=== PATIENT | male | born 1945 | race Caucasian/White ===

== ENCOUNTER → 2016-09-06 | Outpatient (CLI) | payer MEDICARE ==
[~2016-09-06] MED LIST: AMIODARONE HCL400 MG PO; ASPIRIN EC81 M1 PO; ASPIRIN PO; BACTRIM DS TABL1 TAB PO; CARBIDOPA LEV PO; CARDIZEM CD180 M1 PO; CARTIA; CARTIA XT PO; CARTIA XT240 M1 PO; CERTAGEN PO; CORDARONE200 M1 PO; COUMADIN5 MG PO; FLOMAX0.4 M1; FLOMAX0.4 M1 PO; FLOMAX0.4 MG PO; LOPRESSOR PO; LORTAB 10-5001 EACH PO; LOSARTAN POTASS50 MG PO; LOVENOX120 MG/0.8 INJ; MEDROL PO; PACERONE100 MG PO; PRESERVISION1 EA PO; PROSCAR5 MG PO; TIMOPTIC2.5 ML OP; TIMOPTIC5 ML OP; TIMOPTIC5 ML OS; TOPROL XL PO; TOPROL XL50 MG PO; UNKNOWN EYE DROP OS; VITAMIN B-1000 MCG/1 IM
--- NOTE | ~2016-09-06 | CT4 ---
[facility] A Service of [facility] & [facility] RADIOLOGY TEXT RESULTS PATIENT: TYLOR BAEZ [facility] 41 UNIT #: [id number] AGE: [address]: Zain Frost MD SEX: M ORDER DR: [id number] [facility] [address] [place], [place] [address] [id number] O MR#: [id number] [facility] #: [id number] NAME: TYLOR BAEZ : 1945 SEX: M STUDY DATE/TIME: 09/06/2016 17:00 UNIT: [facility] ROOM: STUDY DESCRIPTION: CT Abd and Pelv Wo Cont Attending Physician: Zain Frost M.D. Referring Physician: Zain Frost M.D. Ordering Physician: Zain Frost M.D. Primary Care Physician: Zain Frost M.D. MEDICAL IMAGING REPORT This report is preliminary unless electronic signature is present EXAM CT abdomen and pelvis, 09/06/2016. INDICATION Right flank pain for 2 weeks. Renal calculi. TECHNIQUE CT of the abdomen and pelvis without contrast. Coronal and sagittal reconstructions were obtained. This CT exam was performed with one or more of the following radiation dose reduction techniques: automatic exposure control, adjustment of mA and/or kV according to patient size, and iterative reconstruction. FINDINGS ABDOMEN: There are least 8 small nonobstructing right renal calculi. These measure up to 4 mm in size. There is no hydronephrosis or right ureteral calculi. There are 4 small nonobstructing left renal calculi. There is a benign cyst off the superior pole right kidney. 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 This measures up to 5 mm in diameter. In retrospect, this is unchanged from at least 2012. There are a few small cysts in the liver. The gallbladder is not distended. Pancreas, spleen, and adrenal glands are within normal limits. The bowel is not dilated. The appendix is normal. There are some surgical clips in the right pericolic gutter and left pericolic gutter. The abdominal aorta is normal in caliber. PELVIS: No pelvic mass. There are a few bladder diverticula. No enlarged pelvic or inguinal lymph nodes. [facility] A Service of [facility] / [facility] RADIOLOGY TEXT RESULTS PATIENT: TYLOR BAEZ LOCATION: [facility] : 41 UNIT #: [id number] AGE: [address]: Zain Frost MD SEX: M ORDER DR: No acute osseous abnormalities. IMPRESSION 1. Bilateral nephrolithiasis. No ureteral calculi or hydronephrosis. 2. 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 Dictated by... Pito Ibrahim M.D. THIS IS AN ELECTRONICALLY VERIFIED REPORT Pito Ibrahim M.D. at 09/07/2016 12:13 PM EDITH/mel TD: 09/07/2016 09:03 JOB #: [id number] MEDICAL IMAGING REPORT COPY
== END | disposition home or self-care (01) ==
LOC: CCAT 16:46
DX: R10.9 Unspecified abdominal pain (principal); N20.0 Calculus of kidney; I72.2 Aneurysm of renal artery
CPT/HCPCS: 74176